=== PATIENT | male | born 1965 | race African-American/Black ===

== ENCOUNTER 2016-07-02 13:20 | Emergency (ER) | payer SELFPAY ==
[2016-07-02] MEDS ORDERED: Ketorolac Tromethamine 60 MG/2 ML VIAL ONE (14:23)
[2016-07-02] MEDS ORDERED: Ondansetron ODT 4 MG TAB ONE (14:23)
--- NOTE | 2016-07-02 15:12 | PICIS ---
[facility] EMERGENCY RECORD TRIAGE (SatJul 02, 2016 13:53 MSPE) TRIAGE NOTES: abd pain with vomiting x 1 since 0200. Diarrhea "multiple times"; throat hurts. (SatJul 02, 2016 13:53 MSPE) PATIENT: NAME: Kvng Sinha, AGE: 51, GENDER: male, : Sat 1965, TIME OF GREET: SatJul 02, 2016 13:20, PREFERRED LANGUAGE: Gibraltarian, ETHNICITY: Not or , ECODE BILLING MAP: [facility], SSN: [id number], Zip Code: [address], KG WEIGHT: 89.36, PHONE: , , , PERSON ID: [id number], PCP: none. (SatJul 02, 2016 13:53 MSPE) COMPLAINT: SORE THROAT,ABDOMINAL PAIN,VOMITING,DIARRHEA. (SatJul 02, 2016 13:53 MSPE) ADMISSION: URGENCY: 3 Urgent, ADMISSION SOURCE: Home, TRANSPORT: CAR, BED: ER -04. (SatJul 02, 2016 13:53 MSPE) SIRS SCORING: Heart Rate 55-109 (0), Temp range 96.8-101.1 (0), respiratory rate 12-24 (0), Mental Status altered: no (0), Total SIRS Score 0. (13:57 MSPE) PROVIDERS: TRIAGE NURSE: Melida Wilson RN. (SatJul 02, 2016 13:53 MSPE) PREVIOUS VISIT ALLERGIES: Penicillins. (SatJul 02, 2016 13:53 MSPE) Penicillins. (13:57 MSPE) KNOWN ALLERGIES Penicillins CURRENT MEDICATIONS (13:54 MSPE) amLODIPine: TABLET : Strength - 10 mg : ORAL Patient Dose: 0.5 tab(s) Oral once a day (in the morning). atorvastatin: TABLET : Strength - 40 mg : ORAL Patient Dose: 40 mg Oral once a day (at bedtime). VITAL SIGNS VITAL SIGNS: BP: 160/96, Pulse: 65, Resp: 18, Temp: 97.4 (Oral), Pain: 7, O2 sat: 98 on Room Air, Time: 07/02/2016 13:54. (13:54 MSPE) BP: 140/100, Pulse: 64, Resp: 16, O2 sat: 97 on Room Air, Time: 07/02/2016 14:34. (14:34 MSPE) NURSING ASSESSMENT: ABDOMEN (13:58 MSPE) CONSTITUTIONAL: Patient arrives ambulatory, Gait steady, History obtained from patient, Patient cooperative, Patient alert, Oriented to person, place and time, Skin warm, Skin dry. PAIN: cramping pain, periumbilical, Onset of pain 0200. ABDOMEN: Associated with nausea, Associated with vomiting, history of vomiting, Number of times: 1, Associated with diarrhea, Number of episodes: &a-1R&a+25V*p+0X*[id number]*c202B*c15G*c2P*p-0X&a-25V&a+1R Name: Kvng Sinha : 1965 M51 MedRec: [id number] AcctNum: [id number] Prepared: SatJul 02, 2016 14:54 by Interface Page 1 of 5 pMD [facility] EMERGENC[facility] RECORD "multiple". GENITOURINARY MALE: no associated urinary complaints. NOTES: Notes: sts both children have had similar illness over the weekend. NURSING PROCEDURE: DISCHARGE NOTE (14:37 MSPE) DISCHARGE: Patient discharged to home, ambulating without assistance, family driving, accompanied by //partner, Summary of Care printed/ provided, Discharge instructions given to patient, Simple or moderate discharge teaching performed, Prescriptions given and instructions on side effects given, Above person(s) verbalized understanding of discharge instructions and follow-up care, Patient treated and evaluated by physician. BELONGINGS: Belongings remain with patient. MEDICATION ADMINISTRATION SUMMARY Drug Name: ketorolac intramuscular, Dose Ordered: 60 mg, Route: Intramuscular, Status: Held, Time: 14:26 07/02/2016, Drug Name: ondansetron, Dose Ordered: 4 mg, Route: Sublingual, Status: Given, Time: 14:25 07/02/2016, Detailed record available in Medication Service section. MEDICATION SERVICE ketorolac intramuscular: Order: ketorolac intramuscular (ketorolac tromethamine) - Dose: 60 mg : Intramuscular Ordered by: Jono Combs MD Entered by: Jono Combs MD SatJul 02, 2016 14:17 , Acknowledged by: Melida Wilson RN SatJul 02, 2016 14:23, Held by: Melida Wilson RN SatJul 02, 2016 14:26 Reason: Patient refused:Pt refuses shot; sts "you ain't giving me no shot. I'll deal with the pain". ondansetron: Order: ondansetron - Dose: 4 mg : Sublingual Ordered by: Jono Combs MD Entered by: Jono Combs MD SatJul 02, 2016 14:17 , Acknowledged by: Melida Wilson RN SatJul 02, 2016 14:23 Documented as given by: Melida Wilson RN SatJul 02, 2016 14:25 Patient, Medication, Dose, Route and Time verified prior to administration. Amount given: 4mg, Site: Medication administered S.L., Patient appears Awake and alert- acceptable, Correct patient, time, route, dose and medication confirmed prior to administration, Patient advised of actions and side-effects prior to administration, Allergies confirmed and medications reviewed prior to administration, Patient in position of comfort, Side rails up, Cart in lowest position, Family at bedside. HPI ABDOMINAL PAIN (14:21 AGRE) CHIEF COMPLAINT: Patient presents for evaluation of &a-1R&a+25V*p+0X*[id number]*c202B*c15G*c2P*p-0X&a-25V&a+1R Name: Kvng Sihna : 1965 M51 MedRec: [id number] AcctNum: [id number] Prepared: SatJul 02, 2016 14:54 by Interface Page 2 of 5 pMD [facility] EM[facility] RECORD abdominal pain. HISTORIAN: History provided by patient, History provided by patient's spouse, VOMITING, DIARRHEA, SORE THROAT, ABDOMINAL PAIN SINCE AROUND 2 AM TODAY. HIS CHILDREN HAD SAME SYMPTOMS LAST WEEK. NO BLOOD IN EMESIS OR STOOL. NO FEVER BUT HAS CHILLS. NO OTHER SYMPTOMS. SAYS HIS SON WAS BALLED OVER AT SCHOOL IN THE [place] WITH PAIN AND HE HAD TO GO GET HIM. SAYS HIS OTHER CHILD HAD SAME THING AND BOTH OF THEM HAD RESOLUTION OF THEIR SYMPTOMS WITHIN 48 HOURS. LOCATION MALE: No localizing symptoms. QUALITY: Pain is dull in nature, described as aching, described as cramping. SEVERITY: Maximum severity of symptoms moderate, Currently symptoms are moderate. TIME COURSE: Gradual onset of symptoms. ASSOCIATED WITH: No associated bright red blood per rectum, Associated with diarrhea, No associated melena, Associated with nausea, No associated urinary tract infection signs or symptoms, Denies any other complaints. RELIEVED BY: Patient's condition relieved by nothing. EXACERBATED BY: Patient's condition exacerbated by food. ROS (14:23 AGRE) CONSTITUTIONAL: Historian denies chills, denies fever, denies weakness. EYES: Historian denies eye redness, denies vision changes. ENT: Historian reports sore throat, denies stridor. CARDIOVASCULAR: Historian denies chest pain, denies diaphoresis. RESPIRATORY: Historian denies cough, denies shortness of breath. GI: Historian reports abdominal pain, denies appetite changes, denies constipation, reports diarrhea, denies hematemesis, denies hematochezia, denies jaundice, denies melena, reports nausea, reports vomiting. MUSCULOSKELETAL: Historian denies back pain, denies neck pain. SKIN: Historian denies skin changes, denies skin lesions. NEUROLOGIC: Historian denies confusion, denies dizziness, denies focal weakness, denies headache. HEMO/LYMPHATIC: Normal hematologic/lymphatic system review, Historian denies petechiae. PSYCHIATRIC: Negative psychiatric review of systems, Historian denies anxiety. PAST MEDICAL HISTORY (13:57 MSPE) MEDICAL HISTORY: Flu vaccine not up to date, Tetanus immunization up to date, Pneumococcal vaccine not up to date, Past medical history includes pulmonary disease, asthma, Notes: left eye injury in [place], , Past medical history includes history of hyperlipidemia, includes history of hypertension. MALE SURGICAL HISTORY: Patient has no surgical history. PSYCHIATRIC HISTORY: No previous psychiatric history. &a-1R&a+25V*p+0X*[id number]*c202B*c15G*c2P*p-0X&a-25V&a+1R Name: Kvng Sinha Ted : 1965 M51 MedRec: [id number] AcctNum: [id number] Prepared: SatJul 02, 2016 14:54 by Interface Page 3 of 5 pMD [facility] RECORD SOCIAL HISTORY: Patient drinks socially, Patient denies drug use, Patient currently uses tobacco, Patient smokes 1 pack per day. PHYSICAL EXAM (14:24 AGRE) CONSTITUTIONAL: Vital signs reviewed, Patient afebrile, Respiratory rate normal, Patient appears non toxic, Patient appears pain free, Patient alert and oriented to person, place and time, NURSES NOTES REVIEWED. HEAD: Head exam included findings of head atraumatic, normocephalic. EYES: Eye exam included findings of eyelids normal to inspection, Extraocular muscles intact, Conjunctiva normal, Sclera normal. ENT: Ear exam normal, Nose exam normal, Pharynx, injected bilaterally, no swelling, symmetrical, Uvula, without edema, midline, Tonsils, not enlarged, without exudates, Mouth exam normal. NECK: Neck exam normal, Neck exam included findings of normal range of motion, no meningeal signs, no cervical adenopathy. RESPIRATORY CHEST: Respiratory and chest exam normal, Respiratory exam included findings of no respiratory distress, Breath sounds clear, No wheezing, No rales, No rhonchi, Breath sounds not diminished. CARDIOVASCULAR: Cardiovascular exam included findings of heart rate regular rate and rhythm, Heart sounds normal, normal S1, normal S2, no murmurs, no rub, no gallop. ABDOMEN MALE: Abdominal exam included findings of abdomen tender, diffusely, mild intensity, Bowel sounds normal, Liver normal, Spleen normal, no distension, no mass, no pulsatile masses, no peritoneal signs, no umbilical hernia, no ventral hernia. BACK: Back exam normal, Back exam included findings of normal inspection, range of motion normal, no costovertebral angle tenderness. UPPER EXTREMITY: Upper extremity exam included findings of inspection normal, Range of motion normal. LOWER EXTREMITY: Lower extremity exam included findings of inspection normal, Range of motion normal. NEURO: Neuro exam normal, Neuro exam findings include patient oriented to person, place and time, Speech normal, Gait normal, Memory normal, Cranial nerves intact, no focal motor deficits. SKIN: Skin exam normal, Skin exam included findings of skin warm, dry, and normal in color. LYMPHATIC: Lymphatic exam normal, Lymphatic exam included findings of cervical nodes normal. PSYCHIATRIC: Psychiatric exam normal, Normal affect. EVENTS TRANSFER: Triage to Emergency Emergency Room -04. (SatJul 02, 2016 13:53 MSPE) &a-1R&a+25V*p+0X*[id number]*c202B*c15G*c2P*p-0X&a-25V&a+1R Name: Kvng Sinha : 1965 M51 MedRec: [id number] AcctNum: [id number] Prepared: SatJul 02, 2016 14:54 by Interface Page 4 of 5 pMD [facility] EMERG[facility] RECORD Removed from Emergency Emergency Room -04. (14:51 MSPE) DOCTOR NOTES (14:26 AGRE) TEXT: DISCUSSED EXAM FINDINGS WITH PATIENT, RECOMMENDED NO LAB OR XRAY STUDIES AT THIS TIME SINCE HE INSIST THESE ARE THE EXACT SAME SXS HIS CHILDREN HAD THAT RESOLVED IN 48 HOURS DISCUSSED WITH HE AND MANAGEMENT OF HIS SYMPTOMS, DIET FOR THE SYMPTOMS, PUSH FLUIDS, FOLLOW UP WITH HIS PHYSICIAN FOR RECHECK IN 48 HOURS, SEE A PHYSICAIN SOONER IF WORSENING OR IF NEW SYMPTOMS DEVELOP. THEY EXPRESSED UNDERSTANDING AND AGREEMENT. PATIENT STATUS: Patient has improved since arrival to emergency department. PATIENT PLAN: The patient will be discharged. DATA REVIEWED: Discussed with family. PROBLEM LIST No recorded problems DIAGNOSIS (14:18 AGRE) FINAL: PRIMARY: GASTROENTERITIS. DISPOSITION PATIENT: Disposition Type: Discharge, Disposition: *Discharge Home, Condition: Improved. (14:18 AGRE) Patient left the department. (14:51 MSPE) INSTRUCTION (14:20 AGRE) DISCHARGE: VOMITING DIARR VIRAL 7YADULT. SPECIAL: STAY ON A CLEAR LIQUID DIET ONLY FOR THE NEXT 24 HOURS THEN ADD BANANAS, RICE, DRY TOAST, DRY CEREAL WITH THE LIQUIDS DURING THE NEXT 24 HOURS. TAKE LOTS OF FLUIDS. TYLENOL 650 MG EVERY 4 HOURS AND MOTRIN 600 MG EVERY 6 HOURS FOR PAIN. SEE YOUR PHYSICIAN FOR RECHECK IN 48 HOURS. SEE A PHYSICIAN SOONER IF WORSENING OR IF NEW SYMPTOMS DEVELOP. PRESCRIPTION (14:18 AGRE) Zofran oral: TABLET : 4 mg : ORAL : Quantity: 1-2 Unit: tab(s) Route: ORAL Schedule: every 6 hours PRN Dispense: 24 May substitute. Refills: No Refills . NOTES: No Refills. IMAGING (14:41 MSPE) *DISCHARGE INSTRUCTIONS RECEIPT: Image captured from scanner. *SUPPLY CHARGE SHEET: Image captured from scanner. ADMIN (14:29 AGRE) DIGITAL SIGNATURE: MD Combs Andrea. Moe: AGRE=MD Combs Andrea MSPE=TJ Wilson, Melida &a-1R&a+25V*p+0X*[id number]*c202B*c15G*c2P*p-0X&a-25V&a+1R Name: Kvng Sinha : 1965 M51 MedRec: [id number] AcctNum: [id number] Prepared: SatJul 02, 2016 14:54 by Interface Page 5 of 5 pMD MTDD
== END 2016-07-02 14:37 | disposition home or self-care (01) ==
LOC: NAV ERS 13:20
DX: K52.9 Noninfective gastroenteritis and colitis, unspecified (principal); J45.909 Unspecified asthma, uncomplicated; E78.5 Hyperlipidemia, unspecified; I10 Essential (primary) hypertension; F17.210 Nicotine dependence, cigarettes, uncomplicated; Z79.899 Other long term (current) drug therapy
CPT/HCPCS: 99283; J1885; Q0162

== ENCOUNTER 2017-04-30 05:22 | Emergency (ER) | payer SELFPAY ==
[2017-04-30] MEDS ORDERED: Ketorolac Tromethamine 60 MG/2 ML VIAL ONE (05:38)
== END 2017-04-30 06:05 | disposition home or self-care (01) ==
LOC: NAV ERS 05:22
DX: S46.912A Strain of unspecified muscle, fascia and tendon at shoulder and upper arm level, left arm, initial encounter (principal); I10 Essential (primary) hypertension; J45.909 Unspecified asthma, uncomplicated; E78.5 Hyperlipidemia, unspecified; F17.210 Nicotine dependence, cigarettes, uncomplicated; Z79.899 Other long term (current) drug therapy; X50.9XXA Other and unspecified overexertion or strenuous movements or postures, initial encounter
CPT/HCPCS: 96372; J1885

== ENCOUNTER 2020-07-12 16:06 | Outpatient (CLI) | payer OTHER, SELFPAY ==
--- NOTE | 2020-07-12 16:22 | RAD ---
XR Knee Rt 2 View HISTORY: Disability exam. Right knee pain FINDINGS: Mild-moderate degenerative changes are present. No fracture or dislocation is identified.
== END 2020-07-12 16:07 | disposition home or self-care (01) ==
LOC: NAV RAD 16:06
DX: Z02.71 Encounter for disability determination (principal)

== ENCOUNTER 2022-09-30 18:18 | Emergency (ER) | payer OTHER ==
[2022-09-30 18:36] LABS: #Basophils 0.1 thou/uL (0.0-0.2); #Eosinphils 0.1 thou/uL (0.0-0.7); #Lymphocytes 2.4 thou/uL (1.20-3.40); #Monocytes 0.8 thou/uL (0.11-0.59); #Neutrophils 6.1 thou/uL (1.40-6.50); %Eosinophils 0.9 % (0.0-10.0); %Lymphocytes 25.7 % (21.0-51.0); %Neutrophils 64.4 % (42.0-75.0); Mean Corpuscular HGB CONC 31.4 g/dL (32.0-36.0); Mean Corpuscular Hemoglobin 29.5 pg (27.0-31.0); Mean Corpuscular Volume 93.8 fl (78.0-98.0); Mean Platelet Volume 9.3 fL (7.4-10.4); Platelet Count 209 10x3/uL (130-400); RBC Distribution Width 13.1 % (11.5-14.5); Red Blood Cell (RBC) Count 4.75 mill/uL (4.70-6.10); White Blood Cell (WBC) Count 9.5 10x3/uL (4.8-10.8)
[2022-09-30] MEDS ORDERED: Amlodipine 5 MG TAB ONE (18:50)
[2022-09-30] MEDS ORDERED: Sodium Chloride 0.9% 1,000 ML ONE (18:50)
[2022-09-30 18:54] LABS: ALT (SGPT) 28 U/L (8-55); AST (SGOT) 31 U/L (5-34); Albumin 4.4 g/dL (3.5-5.0); Alkaline Phosphatase 57 U/L (40-110); Anion Gap 17 mmol/L (10-20); BUN (Urea Nitrogen) 18 mg/dL (8.4-25.7); Bilirubin, Total 0.3 mg/dL (0.2-1.2); Calc. Creatinine Clearance 0 mL/min (70-130); Calcium 9.5 mg/dL (7.8-10.44); Carbon Dioxide 22 mmol/L (22-29); Chloride 107 mmol/L (98-107); Estimated GFR 72; Globulin 3.1 g/dL (2.4-3.5); Glucose 93 mg/dL (70-105); Potassium 3.7 mmol/L (3.5-5.1); Protein, Total 7.5 g/dL (6.0-8.3); Sodium 142 mmol/L (136-145)
== END 2022-09-30 20:02 | disposition home or self-care (01) ==
LOC: NAV ERS 18:18
DX: I10 Essential (primary) hypertension (principal); I49.1 Atrial premature depolarization; T67.5XXA Heat exhaustion, unspecified, initial encounter; J45.909 Unspecified asthma, uncomplicated; E78.5 Hyperlipidemia, unspecified; F17.200 Nicotine dependence, unspecified, uncomplicated
CPT/HCPCS: 36415; 80053; 84484; 85025; 93005; 96360; J7050

== ENCOUNTER 2023-04-01 17:00 | Emergency (ER) | payer OTHER ==
[2023-04-01] MEDS ORDERED: Ipratropium/Albuterol 3 ML NEB ONE (17:59)
[2023-04-01 18:48] LABS: SARS-CoV-2 NAA Rapid Test Not Detected (NotDetected)
== END 2023-04-01 19:00 | disposition home or self-care (01) ==
LOC: NAV ERS 17:00
DX: S39.012A Strain of muscle, fascia and tendon of lower back, initial encounter (principal); J44.1 Chronic obstructive pulmonary disease with (acute) exacerbation; J06.9 Acute upper respiratory infection, unspecified; I10 Essential (primary) hypertension; E78.5 Hyperlipidemia, unspecified; F17.210 Nicotine dependence, cigarettes, uncomplicated; Z79.899 Other long term (current) drug therapy; Z20.822 Contact with and (suspected) exposure to COVID-19; X58.XXXA Exposure to other specified factors, initial encounter
CPT/HCPCS: 71046; 87081; 87430; 94760; J7620

== ENCOUNTER 2023-07-26 08:57 | Emergency (ER) | payer OTHER | END 2023-07-26 09:48 | disposition home or self-care (01) | LOC: NAV ERS 08:57 | DX: R04.0 Epistaxis (principal); E78.5 Hyperlipidemia, unspecified; I10 Essential (primary) hypertension; F17.210 Nicotine dependence, cigarettes, uncomplicated; Z79.899 Other long term (current) drug therapy | CPT/HCPCS: 99283 ==

== ENCOUNTER 2023-11-09 23:50 | Emergency (ER) | payer OTHER ==
[2023-11-10] MEDS ORDERED: cloNIDine 0.1 MG TAB ONE (00:20)
[2023-11-10] MEDS ORDERED: Amlodipine 5 MG TAB ONE (00:20)
[2023-11-10] MEDS ORDERED: Ketorolac Tromethamine 30 MG (1 mL) VIAL ONE (00:20)
[2023-11-10 00:43] LABS: #Basophils 0.1 thou/uL (0.0-0.2); #Eosinphils 0.2 thou/uL (0.0-0.7); #Lymphocytes 3.3 thou/uL (1.20-3.40); #Monocytes 0.9 thou/uL (0.11-0.59); #Neutrophils 3.6 thou/uL (1.40-6.50); %Basophils 1.4 % (0.0-1.0); %Eosinophils 2.1 % (0.0-10.0); %Lymphocytes 41.5 % (21.0-51.0); %Monocytes 10.6 % (0.0-10.0); %Neutrophils 44.5 % (42.0-75.0); Hematocrit 44.2 % (42.0-52.0); Hemoglobin 13.5 g/dL (14.0-18.0); Mean Corpuscular HGB CONC 30.6 g/dL (32.0-36.0); Mean Corpuscular Hemoglobin 28.2 pg (27.0-31.0); Mean Corpuscular Volume 92.1 fl (78.0-98.0); Mean Platelet Volume 8.5 fL (7.4-10.4); Platelet Count 175 10x3/uL (130-400); RBC Distribution Width 13.2 % (11.5-14.5)
[2023-11-10 00:51] LABS: Bilirubin Negative (Negative); Blood, Urine Negative (Negative); Clarity Clear (Clear); Glucose, Urine (Dipstick) Negative (Negative); Ketone, Urine Negative (Negative); Leukocyte Negative (Negative); Nitrite Negative (Negative); Protein, Urine (Dipstick) Negative (Neg-Trace)
[2023-11-10 00:56] LABS: CAUTI Indications for Culture Fever or rigors; RBC/HPF None Seen HPF (0-3); Urine Culture Reflex No No; WBC/HPF 0-3 HPF (0-3)
[2023-11-10 01:05] LABS: Amphetamine Not Detected (NotDetected); Barbiturates Screen Not Detected (NotDetected); Benzodiazepine Screen Not Detected (NotDetected); Cocaine Metabolite Screen Not Detected (NotDetected); Methadone Not Detected (NotDetected); Methamphetamine Not Detected (NotDetected); Opiate Screen Not Detected (NotDetected); Oxycodone Screen Not Detected (NotDetected); Phencyclidine (PCP) Not Detected (NotDetected); THC/Cannabinoid Screen Not Detected (NotDetected); Tricyclic Screen Not Detected (NotDetected)
[2023-11-10 01:06] LABS: ALT (SGPT) 21 U/L (8-55); AST (SGOT) 23 U/L (5-34); Alkaline Phosphatase 49 U/L (40-110); Anion Gap 14 mmol/L (10-20); BUN (Urea Nitrogen) 10 mg/dL (8.4-25.7); Bilirubin, Total 0.5 mg/dL (0.2-1.2); Calc. Creatinine Clearance 0 mL/min (70-130); Calcium 9.1 mg/dL (7.8-10.44); Carbon Dioxide 22 mmol/L (22-29); Chloride 106 mmol/L (98-107); Estimated GFR 89; Glucose 99 mg/dL (70-105); Potassium 3.2 mmol/L (3.5-5.1); Sodium 139 mmol/L (136-145)
[2023-11-10] MEDS ORDERED: Potassium Chloride 20 MEQ TAB ONE (01:18)
== END 2023-11-10 01:37 | disposition home or self-care (01) ==
LOC: NAV ERS 23:50
DX: I10 Essential (primary) hypertension (principal); E87.6 Hypokalemia; F17.210 Nicotine dependence, cigarettes, uncomplicated; E78.5 Hyperlipidemia, unspecified; Z79.899 Other long term (current) drug therapy
CPT/HCPCS: 71045; 80053; 80306; 81001; 85025; 96374; J1885

== ENCOUNTER 2025-05-05 08:53 | Outpatient (CLI) | payer OTHER | END 2025-05-05 08:54 | disposition home or self-care (01) | LOC: NAV RAD 08:53 | PROVIDERS: ATTEND Student in an Organized Health Care Education/Training Program | DX: M16.11 Unilateral primary osteoarthritis, right hip (principal); M25.562 Pain in left knee; M25.551 Pain in right hip; M76.9 Unspecified enthesopathy, lower limb, excluding foot ==